=== PATIENT | male | born 1955 | race Caucasian/White ===

== ENCOUNTER → 2017-04-03 | Outpatient (CLI) | payer MEDICARE | LOC: M CLY 10:36 | DX: J40 Bronchitis, not specified as acute or chronic (principal) | CPT/HCPCS: 71046 ==

== ENCOUNTER → 2018-11-13 | Outpatient (CLI) | payer MEDICARE, BC ==
--- NOTE | 2018-11-13 10:50 | REP ---
RIGHT RIB SERIES: Five views of the right ribs performed. There are nondisplaced fractures of the posterior right 9th and 10th ribs. An accompanying PA view of the chest demonstrates no infiltrate or pneumothorax. There is probably a small right effusion. Heart is normal in size. There is tortuosity of the thoracic aorta with no change in the mediastinal silhouette compared to prior study of 03/18/2012. IMPRESSION: Nondisplaced fractures right posterior 9th and 10th ribs. No pneumothorax. Small right effusion. Electronically Signed by Gus Walters MD 11/13/2018 11:25 A
== END ==
LOC: M CLY 09:21
PROVIDERS: ATTEND Family Medicine
DX: S22.41XA Multiple fractures of ribs, right side, initial encounter for closed fracture (principal); W10.9XXA Fall (on) (from) unspecified stairs and steps, initial encounter; Y92.009 Unspecified place in unspecified non-institutional (private) residence as the place of occurrence of the external cause; R07.81 Pleurodynia

== ENCOUNTER → 2019-04-20 | Outpatient (CLI) | payer MEDICARE, BC ==
--- NOTE | 2019-04-20 16:55 | REP ---
Clinical: Left foot pain Technique: AP, lateral, bilateral oblique views left foot . Findings: The osseous structures and joint spaces are intact and normal. There is no evidence for acute fracture or dislocation. Surrounding soft tissues are unremarkable. No subcutaneous emphysema or radiodense foreign body. Impression: Age-appropriate left foot series . No acute fracture or dislocation. Electronically Signed by Quentin Lord MD 04/20/2019 04:47 P
--- NOTE | 2019-04-20 16:55 | REP ---
Clinical: Pain. Technique: AP, lateral, bilateral oblique views of the left ankle. Findings: Soft-tissue swelling. No acute fracture dislocation. Joint spaces and osseous structures are normal for age. Impression: Swelling. No acute fracture or dislocation. Electronically Signed by Quentin Lord MD 04/20/2019 04:46 P
== END ==
LOC: M CLY 16:08
PROVIDERS: ATTEND Nurse Practitioner Family
DX: M25.472 Effusion, left ankle (principal); M79.672 Pain in left foot

== ENCOUNTER → 2019-04-20 | Outpatient (REF) | payer MEDICARE, BC ==
[2019-04-21 11:50] LABS: BASO # 0.1 10^3/uL (0.0-0.2); BASO % 0.8 % (0.0-1.0); EOS # 0.1 10^3/uL (0.0-0.5); EOS % 2.2 % (0.0-3.0); HEMATOCRIT 43.3 % (42.0-52.0); HEMOGLOBIN 14.8 g/dl (13.5-17.5); LYMPH # 1.2 10^3/uL (1.5-5.0); LYMPH % 18.5 % (24.0-44.0); MEAN CORPUSCULAR HEMOGLOBIN 32.6 pg (27.0-33.0); MEAN CORPUSCULAR HGB CONC 34.2 g/dl (32.0-36.5); MEAN CORPUSCULAR VOLUME 95.4 fl (80.0-96.0); MONO # 0.6 10^3/uL (0.0-0.8); MONO % 10.2 % (0.0-5.0); NEUTROPHILS # 4.3 10^3/uL (1.5-8.5); PLATELET COUNT, AUTOMATED 220 10^3/uL (150-450); RED BLOOD COUNT 4.54 10^6/uL (4.30-6.10); WHITE BLOOD COUNT 6.3 10^3/uL (4.0-10.0)
[2019-04-21 11:59] LABS: BLOOD UREA NITROGEN 27 MG/DL (7-18); CALCIUM LEVEL 9.2 MG/DL (8.8-10.2); CARBON DIOXIDE LEVEL 28 MEQ/L (21-32); CHLORIDE LEVEL 104 MEQ/L (98-107); CREATININE FOR GFR 1.05 MG/DL (0.70-1.30); GLOMERULAR FILTRATION RATE > 60.0 (>49); GLUCOSE, FASTING 104 MG/DL (70-100); POTASSIUM SERUM 5.3 MEQ/L (3.5-5.1); SODIUM LEVEL 139 MEQ/L (136-145); URIC ACID 6.2 MG/DL (3.5-7.2)
[2019-04-21 12:19] LABS: ERYTHROCYTE SEDIMENTATION RATE 15 mm/hr (0-20)
== END ==
LOC: M SFHCCLAY 15:56
PROVIDERS: ATTEND Nurse Practitioner Family
DX: M79.672 Pain in left foot (principal)

== ENCOUNTER → 2020-06-08 | Outpatient (CLI) | payer MEDICARE ==
--- NOTE | 2020-06-08 12:30 | REP ---
INDICATION: M79.89 SWELLLING OF LEFT HAND. COMPARISON: Left wrist 06/08/2020 TECHNIQUE: Four views FINDINGS: Distal radius and ulna without fracture or focal lesion. Carpal bones show minor degenerative changes at the 1st and 2nd CMC joints. No fracture or subluxation of the carpal bones. No erosion destructive lesions. Metacarpals are intact MCP joints without erosions or significant narrowing. Small spurs noted. IP joints with some minimal spurring but no significant narrowing. The phalanges are without fracture or focal lesion. Minor soft tissue swelling dorsal aspect of the hand. IMPRESSION: 1. Minor degenerative changes as described. No visible fracture, avulsion, destructive lesion, foreign body or any acute bony finding. Some minor soft tissue swelling dorsal aspect of the hand and proximal digits. <Electronically signed by Kp Lopez > 06/08/20 [id number]
--- NOTE | 2020-06-08 12:32 | REP ---
INDICATION: M25.432 SWELLING OF LEFT WRIST. COMPARISON: Left hand series this date. TECHNIQUE: Four views FINDINGS: Minor degenerative changes at the 1st and 2nd CMC joints. Radiocarpal articulation grossly intact. Distal radius and ulna without fracture or focal lesion. Carpal bones without destructive lesion or erosions. Some minor degenerative changes 1st MCP joint less at other MCP joints with no joint space narrowing metacarpals without fracture or focal lesion. Proximal phalanges intact some minor soft tissue swelling over the dorsal aspect of the wrist, hand and MCP joints. IMPRESSION: 1. Some minor degenerative changes at the wrist and 1st MCP joint without fracture, avulsion or other acute bony finding. 2. Some mild soft tissue swelling dorsal aspect of the wrist and proximal phalanges. <Electronically signed by Kp Lopez > 06/08/20 [id number]
== END ==
LOC: M CLY 11:50
PROVIDERS: ATTEND Physician Assistant
DX: M19.032 Primary osteoarthritis, left wrist (principal); M19.042 Primary osteoarthritis, left hand; M79.89 Other specified soft tissue disorders; M25.432 Effusion, left wrist

== ENCOUNTER → 2020-06-08 | Outpatient (REF) | payer MEDICARE, BC ==
[2020-06-08 16:09] LABS: BASO # 0.1 10^3/uL (0.0-0.2); BASO % 0.7 % (0.0-1.0); EOS # 0.1 10^3/uL (0.0-0.5); EOS % 1.6 % (0.0-3.0); HEMATOCRIT 44.7 % (42.0-52.0); HEMOGLOBIN 15.1 g/dl (13.5-17.5); LYMPH # 0.9 10^3/uL (1.5-5.0); LYMPH % 13.3 % (24.0-44.0); MEAN CORPUSCULAR HEMOGLOBIN 31.4 pg (27.0-33.0); MEAN CORPUSCULAR HGB CONC 33.8 g/dl (32.0-36.5); MEAN CORPUSCULAR VOLUME 92.9 fl (80.0-96.0); MONO # 0.7 10^3/uL (0.0-0.8); MONO % 10.5 % (2.0-8.0); NEUTROPHILS % 73.6 % (36.0-66.0); PLATELET COUNT, AUTOMATED 211 10^3/uL (150-450); RED BLOOD COUNT 4.81 10^6/uL (4.30-6.10); WHITE BLOOD COUNT 6.9 10^3/uL (4.0-10.0)
[2020-06-08 16:41] LABS: ALBUMIN 4.4 GM/DL (3.2-5.2); ALT/SGPT 83 U/L (12-78); BILIRUBIN,TOTAL 0.9 MG/DL (0.2-1.0); BLOOD UREA NITROGEN 16 MG/DL (7-18); C REACTIVE PROTEIN QUANTITATIV 2.33 MG/DL (0.00-0.30); CALCIUM LEVEL 9.6 MG/DL (8.8-10.2); CARBON DIOXIDE LEVEL 28 MEQ/L (21-32); CHLORIDE LEVEL 100 MEQ/L (98-107); CREATININE FOR GFR 1.06 MG/DL (0.70-1.30); GLOMERULAR FILTRATION RATE > 60.0 (>49); GLUCOSE, FASTING 95 MG/DL (70-100); POTASSIUM SERUM 4.2 MEQ/L (3.5-5.1); RHEUMATOID FACTOR QUANT < 10.0 IU/ML (<15.0); SODIUM LEVEL 134 MEQ/L (136-145); TOTAL PROTEIN 7.5 GM/DL (6.4-8.2)
[2020-06-08 17:28] LABS: ERYTHROCYTE SEDIMENTATION RATE 15 mm/hr (0-20)
== END ==
LOC: M SFHCCLAY 11:42
PROVIDERS: ATTEND Physician Assistant
DX: M79.89 Other specified soft tissue disorders (principal)

== ENCOUNTER → 2020-08-26 | Outpatient (REF) | payer MEDICARE, BC ==
[2020-08-26 18:58] LABS: CREATININE,RANDOM URINE 45.2 MG/DL; TOTAL PROTEIN,RANDOM URINE < 5.0 MG/DL (0.0-12.0)
[2020-08-26 19:13] LABS: APPEARANCE, URINE CLEAR (CLEAR); BACTERIA, URINE AUTO NEGATIVE (NEGATIVE); BILIRUBIN, URINE AUTO NEGATIVE (NEGATIVE); BLOOD, URINE BLOOD NEGATIVE (NEGATIVE); COLOR, URINE YELLOW (YELLOW); GLUCOSE, URINE (UA) AUTO NEGATIVE (NEGATIVE); KETONE, URINE AUTO NEGATIVE (NEGATIVE); LEUKOCYTE ESTERASE, URINE AUTO NEGATIVE (NEGATIVE); MUCUS, URINE SMALL (NEGATIVE); NITRITE, URINE AUTO NEGATIVE (NEGATIVE); PROTEIN, URINE AUTO NEGATIVE (NEGATIVE); RBC, URINE AUTO 0 /HPF (0-3); SPECIFIC GRAVITY URINE AUTO 1.008 (1.002-1.035); SQUAMOUS EPITHELIAL CELL UR AU 0 /HPF (0-6); UROBILINOGEN, URINE AUTO 0.2 mg/dL (0.0-2.0); WBC, URINE AUTO 3 /HPF (0-3)
[2020-08-26 19:26] LABS: C REACTIVE PROTEIN QUANTITATIV < 0.30 MG/DL (0.00-0.30); COMPLEMENT C3 133 MG/DL (90-180); COMPLEMENT C4 35 MG/DL (10-40); URIC ACID 8.8 MG/DL (3.5-7.2)
[2020-08-30 00:08] LABS: COMPLEMENT TOTAL (CH50) 60 U/mL (>41); CYCLIC CITRULLINATED PEPTIDE 14 units (0-19)
== END ==
LOC: M SFHCRHEU 15:42
PROVIDERS: ATTEND Internal Medicine
DX: E79.0 Hyperuricemia without signs of inflammatory arthritis and tophaceous disease (principal); M25.40 Effusion, unspecified joint
CPT/HCPCS: 81001; 82570; 84156; 84550; 85652; 86140; 86160; 86162; 86200; G0463

== ENCOUNTER → 2020-12-14 | Outpatient (CLI) | payer MEDICARE, BC ==
[~2020-12-14] MED LIST: AMIT10TA7; CARV3.12; LIDOCAINE 1% MDV 20ML VIAL As Ordered ONE; PANT40TA29; PRAV40TA2; SODIUM BICARBONATE 8.4% INJ 50MEQ 50 ML VIAL As Ordered ONE; VALS1TAB66
[2020-12-14 11:34] LABS: HEMATOCRIT 41.8 % (42.0-52.0); HEMOGLOBIN 14.6 g/dl (13.5-17.5); MEAN CORPUSCULAR HEMOGLOBIN 32.2 pg (27.0-33.0); MEAN CORPUSCULAR HGB CONC 34.9 g/dl (32.0-36.5); MEAN CORPUSCULAR VOLUME 92.3 fl (80.0-96.0); PLATELET COUNT, AUTOMATED 200 10^3/uL (150-450); RED BLOOD COUNT 4.53 10^6/uL (4.30-6.10); WHITE BLOOD COUNT 4.2 10^3/uL (4.0-10.0)
[2020-12-14 11:45] LABS: INR 0.99; PROTHROMBIN TIME 13.5 SECONDS (12.7-14.5)
[2020-12-14 14:25] VITALS: BP 147/89
--- NOTE | 2020-12-14 17:06 | REP ---
INDICATION: ABN LFTS. COMPARISON: None. TECHNIQUE: The procedure was performed by Shruth[facility] Swartz [facility], under the direct supervision of Dr. Mann. The risks and benefits of the procedure were explained to the patient and an informed consent was obtained both verbally and written. Directly prior to the start of the procedure a formal time-out was completed in the procedure room. FINDINGS: Using ultrasound guidance the left lobe of the liver was localized. The skin was prepped and draped in a sterile fashion. Twenty mL of buffered lidocaine was used as a local anesthetic. Using ultrasound guidance a 17/18 gauge coaxial needle biopsy system was inserted and advanced into the left lobe of the liver. Four core biopsy specimens were obtained and sent to pathology for further analysis. The patient tolerated the procedure well and there were no immediate complications. After the appropriate amount of monitored convalescence the patient was discharged from the department. IMPRESSION: 1. Ultrasound-guided left lobe liver biopsy. <Electronically signed by Shruthi Swartz > 12/14/20 [id number] <Electronically signed by Misael Mann > 12/14/20 [id number]
== END ==
LOC: M IRPRO 10:34
PROVIDERS: ATTEND Internal Medicine Gastroenterology
DX: K76.0 Fatty (change of) liver, not elsewhere classified (principal); F10.10 Alcohol abuse, uncomplicated

== ENCOUNTER → 2021-11-21 | Outpatient (CLI) | payer MEDICARE, BC ==
[~2021-11-21] MED LIST changes: -LIDOCAINE 1% MDV 20ML VIAL As Ordered ONE; -SODIUM BICARBONATE 8.4% INJ 50MEQ 50 ML VIAL As Ordered ONE
== END ==
LOC: M SOG 10:02
PROVIDERS: ATTEND Orthopaedic Surgery Hand Surgery
DX: S69.91XA Unspecified injury of right wrist, hand and finger(s), initial encounter (principal)

== ENCOUNTER 2024-02-24 09:38 | Day surgery (SDC) | payer MEDICARE ==
[~2024-02-24] VITALS: Ht 175.3 cm; Wt 96.8 kg
[~2024-02-24 09:38] MED LIST changes: +ALLO100T PO; +AMIT10TA7 PO; +CARV6.25 PO; +CELE100C PO; +COLC0.6T47 PO; +NS 250 ML IV ONE; +PANT20TA6 PO; +VALS1TAB66 PO
[2024-02-24] MEDS ORDERED: GLYCOPYRROLATE INJ 0.2 MG/ML 2 ML VIAL As Ordered ONE (11:16)
[2024-02-24] MEDS ORDERED: propofoL 200 MG/20 ML VIAL As Ordered ONE (11:16)
[2024-02-24 11:42] VITALS: TEMP 98.9
[2024-02-24] MEDS ORDERED: LIDOCAINE 2% 100MG/5ML SDV (FOR ANES.) As Ordered ONE (11:49)
[2024-02-24 12:00] VITALS: BP 170/88; O2SAT 95
== END 2024-02-24 12:13 | disposition home or self-care (01) ==
LOC: M OPP 09:38
PROVIDERS: ATTEND Internal Medicine Gastroenterology
DX: Z12.11 Encounter for screening for malignant neoplasm of colon (principal); K64.0 First degree hemorrhoids; K57.30 Diverticulosis of large intestine without perforation or abscess without bleeding; K29.50 Unspecified chronic gastritis without bleeding; K22.89 Other specified disease of esophagus; K31.89 Other diseases of stomach and duodenum; I10 Essential (primary) hypertension; E78.5 Hyperlipidemia, unspecified; K21.9 Gastro-esophageal reflux disease without esophagitis; M19.90 Unspecified osteoarthritis, unspecified site; Z79.899 Other long term (current) drug therapy
CPT/HCPCS: 43239; 88305; G0121; J1596

== ENCOUNTER → 2024-07-01 | Outpatient (REF) | payer MEDICARE ==
[~2024-07-01] MED LIST changes: -NS 250 ML IV ONE
[2024-07-01 12:56] LABS: BASO # 0.1 10^3/uL (0.0-0.2); BASO % 1.3 % (0.0-1.0); EOS # 0.2 10^3/uL (0.0-0.5); EOS % 4.6 % (0.0-3.0); HEMATOCRIT 40.2 % (42.0-52.0); HEMOGLOBIN 14.1 g/dl (13.5-17.5); LYMPH # 0.9 10^3/uL (1.5-5.0); MEAN CORPUSCULAR HEMOGLOBIN 33.1 pg (27.0-33.0); MEAN CORPUSCULAR HGB CONC 35.1 g/dl (32.0-36.5); MEAN CORPUSCULAR VOLUME 94.4 fl (80.0-96.0); MONO # 0.4 10^3/uL (0.0-0.8); MONO % 9.9 % (2.0-8.0); NEUTROPHILS # 2.4 10^3/uL (1.5-8.5); NEUTROPHILS % 61.7 % (36.0-66.0); PLATELET COUNT, AUTOMATED 161 10^3/uL (150-450); RED BLOOD COUNT 4.26 10^6/uL (4.30-6.10)
[2024-07-01 13:03] LABS: ALBUMIN 3.7 G/DL (3.2-5.2); ALKALINE PHOSPHATASE 99 U/L (40-129); ALT/SGPT 37 U/L (7.0-40); AST/SGOT 29 U/L (<34); BLOOD UREA NITROGEN 17 MG/DL (9-23); CALCIUM LEVEL 8.5 MG/DL (8.3-10.6); CARBON DIOXIDE LEVEL 28 MMOL/L (20-31); CHLORIDE LEVEL 102 MMOL/L (98-107); CHOLESTEROL LEVEL 200 MG/DL (<200); CHOLESTEROL RISK RATIO 3.01 (<5); CREATININE FOR GFR 0.91 MG/DL (0.70-1.30); GLOMERULAR FILTRATION RATE > 90.0 (>49); GLUCOSE, FASTING 118 MG/DL (74-106); HDL CHOLESTEROL 66.3 MG/DL (>40); LDL CHOLESTEROL 106.9 MG/DL (<100); NON-HDL-C 133.7 MG/DL; POTASSIUM SERUM 4.3 MMOL/L (3.5-5.1); SODIUM LEVEL 136 MMOL/L (136-145); TOTAL PROTEIN 6.2 G/DL (5.7-8.2); TRIGLYCERIDES LEVEL 134 MG/DL (<150)
[2024-07-01 13:54] LABS: HEMOGLOBIN A1c 5.2 % (4.0-6.0)
== END ==
LOC: M SFHCCLAY 08:15
PROVIDERS: ATTEND Physician Assistant
DX: Z00.00 Encounter for general adult medical examination without abnormal findings (principal); I10 Essential (primary) hypertension; E78.00 Pure hypercholesterolemia, unspecified; Z98.2 Presence of cerebrospinal fluid drainage device; D72.810 Lymphocytopenia; M1A.09X1 Idiopathic chronic gout, multiple sites, with tophus (tophi)

== ENCOUNTER → 2025-02-12 | Outpatient (REF) | payer MEDICARE ==
[~2025-02-12] MED LIST changes: +AMIT10TA11; +AMIT10TA11 PO; -AMIT10TA7; -AMIT10TA7 PO; -COLC0.6T47 PO; +COLC0.6T53 PO; -PRAV40TA2; +PRAV40TA85
[2025-02-12 13:19] LABS: ALT/SGPT 102.0 U/L (7.0-40); AST/SGOT 91.0 U/L (<34); CALCIUM LEVEL 8.8 MG/DL (8.3-10.6); CARBON DIOXIDE LEVEL 30.0 MMOL/L (20-31); CHLORIDE LEVEL 96.0 MMOL/L (98-107); CHOLESTEROL LEVEL 188.0 MG/DL (<200); CHOLESTEROL RISK RATIO 2.75 (<5); CREATININE FOR GFR 0.95 MG/DL (0.70-1.30); GLOMERULAR FILTRATION RATE 87.2 (>49); LDL CHOLESTEROL 103.3 MG/DL (<100); NON-HDL-C 119.7 MG/DL; POTASSIUM SERUM 4.6 MMOL/L (3.5-5.1); SODIUM LEVEL 133.0 MMOL/L (136-145); TRIGLYCERIDES LEVEL 82.0 MG/DL (<150)
[2025-02-12 13:24] LABS: PLATELET COUNT, AUTOMATED 231 10^3/uL (150-450)
[2025-02-12 13:36] LABS: ESTIMATED AVERAGE GLUCOSE 114.0 MG/DL (60-110)
== END ==
LOC: M SFHCCLAY 07:38
PROVIDERS: ATTEND Physician Assistant
DX: I10 Essential (primary) hypertension (principal); E78.00 Pure hypercholesterolemia, unspecified; Z98.2 Presence of cerebrospinal fluid drainage device; K21.9 Gastro-esophageal reflux disease without esophagitis; D72.810 Lymphocytopenia; M1A.09X1 Idiopathic chronic gout, multiple sites, with tophus (tophi); F51.01 Primary insomnia; D64.9 Anemia, unspecified; Z79.899 Other long term (current) drug therapy

== ENCOUNTER → 2025-02-17 | Outpatient (REF) | payer BC ==
[2025-02-17 17:48] LABS: IRON (FE) 103 UG/DL (65-175)
[2025-02-17 17:49] LABS: PERCENT SATURATION 30.4 % (19.7-50.0)
[2025-02-17 18:29] LABS: HEPATITIS C VIRUS ABY INDEX < 0.02 INDEX (<0.8)
== END ==
LOC: M SFHCCLAY 09:52
PROVIDERS: ATTEND Physician Assistant
DX: R79.89 Other specified abnormal findings of blood chemistry (principal)

== ENCOUNTER → 2025-02-19 | Outpatient (CLI) | payer BC, MEDICARE | LOC: M PLARAD 11:25 | PROVIDERS: ATTEND Physician Assistant | DX: M54.50 Low back pain, unspecified (principal); M48.061 Spinal stenosis, lumbar region without neurogenic claudication; M47.816 Spondylosis without myelopathy or radiculopathy, lumbar region; Z98.2 Presence of cerebrospinal fluid drainage device ==